=== PATIENT | female | born 1965 | race Hispanic/Latino ===

== ENCOUNTER 2024-12-13 10:42 | Emergency (ER) | payer BC, OTHER ==
[~2024-12-13] VITALS: Ht 162.6 cm; Wt 63.5 kg
--- NOTE | 2024-12-13 10:57 | ERN ---
ED Note History of Present Illness Stated Complaint: HEAD SHARP PAIN Time Seen by MD: 10:45 Dictation: PATIENT IS A 59-YEAR-OLD FEMALE WITH COMPLAINTS OF A RIGHT RETRO-ORBITAL AND TEMPORAL HEADACHE SHE HAS HAD FOR THREE DAYS. SHE STATES THE PAIN IS SHARP. SHE ALSO STAGE SHE FEELS LIKE THERE SOME WHELPS UNDERNEATH HER SCALP ON THE RIGHT SIDE. SHE STATES SHE HAS A HISTORY OF BREAST CA AND HAS BEEN IN REMISSION FOR SEVERAL YEARS. SHE STATES SHE CALLED HER DOCTOR IN [facility] AT THE [facility], ADVISED TO GO TO THE EMERGENCY ROOM. NIH IS 0. SHE HAS TAKEN NOTHING TODAY PRIOR TO ARRIVAL FOR PAIN ALSO, SHE DROVE HERSELF TO THE HOSPITAL. Allergies: Coded Allergies: fentanyl (Unverified Allergy, Unknown, 12/13/24) midazolam (Unverified Allergy, Unknown, 12/13/24) propofol (Unverified Allergy, Unknown, 12/13/24) Home Meds Active Scripts Butalb/Acetaminophen/Caffeine (Esgic 50-325-40 mg Tablet) 50 Mg-325 Mg-40 Mg Tablet, 2 TAB PO Q4H, #20 TAB 0 Refills TWO TABLETS BY MOUTH EVERY4 HOURS P.R.N. HEADACHE, MAXIMUM SIX TABLETS IN 24 HOURS Prov:ANATOLIY PATINO PHOTO MASK PATTERN GENERATOR 12/13/24 Famciclovir (Famciclovir) 500 Mg Tablet, 500 MG PO TID for 7 Days, #21 TAB Prov:ANATOLIY PATINO PHOTO MASK PATTERN GENERATOR 12/13/24 Past Medical History History: Not Applicable RN Note Reviewed/Agreed w/PFSH: Yes Review of System Dictation ROS CONSTITUTIONAL: NEGATIVE EXCEPT FOR HPI HEAD/FACE: NEGATIVE EXCEPT FOR HPI EENT: NEGATIVE EXCEPT FOR HPI RESPIRATORY: NEGATIVE EXCEPT FOR HPI GASTROINTESTINAL/ABDOMINAL: NEGATIVE EXCEPT FOR HPI GENITOURINARY: NEGATIVE EXCEPT FOR HPI MUSCULOSKELETAL: NEGATIVE EXCEPT FOR HPI INTEGUMENTARY: NEGATIVE EXCEPT FOR HPI NEUROLOGICAL/PSYCH: NEGATIVE EXCEPT FOR HPI RIGHT RETRO-ORBITAL AND TEMPORAL HEADACHE HEMATOLOGIC/LYMPHATIC: NEGATIVE EXCEPT FOR HPI ALL SYSTEMS NEGATIVE, EXCEPT NOTED ABOVE. 13 POINT REVIEW OF SYSTEMS ASSESSED AND ALL NEGATIVE EXCEPT FOR ABOVE. Initial Vital Sign VS Vital Signs Date Time Temp Pulse Resp B/P (MAP) Pulse Ox O2 Delivery O2 Flow Rate FiO2 12/13/24 11:00 97.9 83 16 127/90 99 Room Air 0 12/13/24 14:06 21 Physical Exam Dictation VITAL SIGNS REVIEWED GENERAL APPEARANCE: ALERT, ORIENTED X 3, MILD ACUTE DISTRESS, WELL DEVELOPED, NOURISHED. HEAD AND FACE: NON-TRAUMATIC. NO FACIAL RASH EYES: PERRL, PINK CONJUNCTIVAS, EYELID NO TRAUMA, ANTERIOR CHAMBER WITH ARCUS SENILIS. EARS: PINNAS INTACT AND NO SIGNS OF TRAUMA OR ERYTHEMA EAR CANALS CLEAR AND NO DISCHARGE TM NO ERYTHEMA NOSE: NO DISCHARGE, NO BLEEDING. OROPHARYNX: MOUTH NORMAL, TONGUE PINK, PHARYNX CLEAR,NO ERYTHEMA, TONSILS NO EXUDATES, NO ABSCESSES NOTED, MUCOUS MEMBRANE MOIST NECK: SUPPLE, NON-TENDER, NO THYROMEGALY, NO MASSES, NO JVD, NO BRUITS BREAST:DEFERRED CHEST:NO TENDERNESS, NO CREPITUS, NO PARADOXICAL MOVEMENT, NO RETRACTIONS LUNGS:CLEAR, WELL-VENTILATED, SYMMETRIC, NO RALES, NO WHEEZING, NO RHONCHI, NO STRIDOR, GOOD BREATH SOUNDS BILATERALLY HEART: REGULAR RATE, REGULAR RHYTHM, NO MURMUR, NO GALLOPS VASCULAR: NO PERIPHERAL EDEMA, ABDOMEN: SOFT, POSITIVE BOWEL SOUNDS, NONDISTENDED, NO GUARDING, NONTENDER, NO REBOUND, NO MASSES NO HEPATOMEGALY, NO SPLENOMEGALY, NO OTT'S SIGN, NO HERNIAS. RECTAL: DEFERRED GENITAL: DEFERRED NEUROLOGICAL: NORMAL SPEECH, MOTOR FUNCTION INTACT, SENSORY FUNCTION INTACT NIH IS 0 MUSCULOSKELETAL: NECK NONTENDER, FULL RANGE OF MOTION, BACK NONTENDER, FULL RANGE OF MOTION, EXTREMITIES: NONTENDER, FULL RANGE OF MOTION SKIN: COLOR PINK, DRY, NO TURGOR, NO RASH, NO LACERATIONS, NO ABRASIONS, NO CONTUSIONS. LYMPHATIC: DEFERRED Results (Laboratory/Radiology) Laboratory/Radiology Laboratory Tests Test 12/13/24 11:43 White Blood Count 5.9 K/uL (4.8-10.8) Red Blood Count 4.42 MIL/uL (4.00-5.50) Hemoglobin 13.8 g/dL (12.0-16.0) Hematocrit 41.5 % (36-48) Mean Corpuscular Volume 93.9 fL (79-99) Mean Corpuscular Hemoglobin 31.2 pg (27.0-33.0) Mean Corpuscular Hemoglobin Concent 33.3 g/dL (32.0-36.0) Red Cell Distribution Width 12.7 % (11.0-15.5) Platelet Count 303 K/uL (130-400) Mean Platelet Volume 10.1 fL (7.5-10.5) Immature Granulocyte % (Auto) 0.3 % (0-1) Neutrophils (%) (Auto) 55.3 % (40.0-77.0) Lymphocytes (%) (Auto) 29.6 % (21.0-51.0) Monocytes (%) (Auto) 11.3 % (3.0-13.0) Eosinophils (%) (Auto) 2.2 % (0.0-8.0) Basophils (%) (Auto) 1.3 % (0.0-5.0) Neutrophils # (Auto) 3.3 K/uL (1.8-7.7) Lymphocytes # (Auto) 1.8 K/uL (1.0-4.8) Monocytes # (Auto) 0.7 K/uL (0.1-1.0) Eosinophils # (Auto) 0.13 K/uL (0.00-0.70) Basophils # (Auto) 0.08 K/uL (0.00-0.20) Absolute Immature Granulocyte (auto 0.02 K/uL (0-1) Nucleated Red Blood Cells 0.0 % (0.0-0.19) Sodium Level 138 mmol/L (136-145) Potassium Level 4.2 mmol/L (3.5-5.1) Chloride Level 102 mmol/L (101-111) Carbon Dioxide Level 35 mmol/L (21-32) H Blood Urea Nitrogen 16 mg/dL (7-18) Creatinine 0.6 mg/dL (0.5-1.0) Glomerular Filtration Rate Calc 104 mL/min (>90) Random Glucose 90 mg/dL (70-105) Total Calcium 8.9 mg/dL (8.5-10.1) Exam: NONCONTRAST CT BRAIN REASON: RIGHT RETRO-ORBITAL AND TEMPORAL HEADACHE ONSET THREE DAYS PRIOR TO ARRIVAL. COMPARISON: None. TECHNIQUE: Images are obtained from vertex to the skull base. The exam was performed without IV contrast. FINDINGS: There is normal appearing brain parenchyma. There are no focal mass lesions. There is is no evidence of intracranial hemorrhage or acute stroke. Ventricles and sulci appear normal. Posterior fossa and brainstem structures are unremarkable. Paranasal sinuses and remaining extracranial soft tissues appear normal as well. IMPRESSION: 1. Normal noncontrast CT brain. Labs Reviewed?: Yes ED Course ED Course Orders Procedure Category Date Status Time Ct Head/Brain W/O CT 12/13/24 Resulted Contrast 10:54 Cbc With Differential LAB 12/13/24 Complete 10:54 Basic Metabolic Panel LAB 12/13/24 Complete 10:54 Acetaminophen 500mg PHA 12/13/24 Complete Tab (Tylenol 500mg T 11:00 Current Medications Medications (Trade) Dose Ordered Sig/Katerine Route PRN Reason Start Time Stop Time Status Last Admin Dose Admin Acetaminophen (TYLenol 500MG TAB) 1,000 mg ONCE ONCE PO 12/13/24 11:00 12/13/24 11:01 DC Vital Signs Date Time Temp Pulse Resp B/P (MAP) Pulse Ox O2 Delivery O2 Flow Rate FiO2 12/13/24 14:06 97.9 83 16 127/90 99 Room Air* 0 21 12/13/24 11:00 97.9 83 16 127/90 99 Room Air 0 1330/PATIENT WILL BE DISCHARGED HOME WITH NEVER NEGATIVE CT AND LABS. SHE WILL BE PROVIDED FAMCICLOVIR PROPHYLACTICALLY IN CASE THE EARLY RASH TO HER FACE COULD BE SHINGLES. SHE WAS TOLD TO FOLLOW UP WITH HER DOCTOR Medical Decision Making MDM MEDICAL DISCHARGE MAKING BASED ON CT OF THE HEAD AND BASIC LABS. CT WAS NEGATIVE AND RULED OUT CENTRAL NERVOUS SYSTEM LESION LABS COMPLETELY UNREMARKABLE PATIENT DISCHARGED HOME WITH TENSION HEADACHE ALSO WE WILL BE PROVIDED [facility]LOV[facility] FOR POSSIBLE EARLY SHINGLES AND TOLD TO SEE HER DOCTOR. SHE REMAINS NEUROLOGICALLY INTACT DX & DISP Disposition: Discharge Departure Impression: Primary Impression: Tension headache Additional Impression: Facial rash Condition: Stable Scripts Butalb/Acetaminophen/Caffeine (Esgic 50-325-40 mg Tablet) 50 Mg-325 Mg-40 Mg Tablet 2 TAB PO Q4H, #20 TAB 0 Refills TWO TABLETS BY MOUTH EVERY4 HOURS P.R.N. HEADACHE, MAXIMUM SIX TABLETS IN 24 HOURS Prov: ANATOLIY PATINO PHOTO MASK PATTERN GENERATOR 12/13/24 Famciclovir (Famciclovir) 500 Mg Tablet 500 MG PO TID for 7 Days, #21 TAB Prov: ANATOLIY PATINO PHOTO MASK PATTERN GENERATOR 12/13/24 Additional Instructions: FOLLOW-UP WITH PRIMARY CARE PROVIDER IN 1 TO 2 DAYS. TAKE MEDICATIONS DIRECTED HERE IN THE EMERGENCY ROOM. OKAY TO CONTINUE HOME MEDICATIONS UNLESS OTHERWISE DISCUSSED DURING YOUR VISIT IN THE EMERGENCY ROOM TODAY. RETURN TO YOUR NEAREST EMERGENCY ROOM IF SYMPTOMS WORSEN OR IF THERE IS NO IMPROVEMENT. CALL 911 IF YOU NEED IMMEDIATE ASSISTANCE. TAKE TYLENOL OR MOTRIN OVER-THE- COUNTER NEEDED AND IF NO CONTRAINDICATIONS ARE PRESENT. INCREASE ORAL HYDRATION. A WOUND CULTURE OR URINE CULTURE WAS ORDERED HERE IN THE EMERGENCY ROOM DEPARTMENT PLEASE FOLLOW-UP WITH PRIMARY CARE PROVIDER AND ADVISE THEM TO GET REPEAT PORTS FROM OUR FACILITY. IF YOU HAD ANY MICHELLE WRAP/SPLINTS THAT WERE APPLIED HERE, PLEASE DO NOT REMOVE THEM UNTIL YOU SEE YOUR PRIMARY CARE OR SPECIALTY. TAKE FAMCICLOVIR DIRECTED UNTIL GONE. TAKE MEDICATIONS FOR HEADACHE DIRECTED. FOLLOW UP WITH YOUR DOCTOR AT [facility] IN 1-2 DAYS Referrals: NONE (PCP) Time of Disposition: 13:30 I have reviewed the case, and I agree with, Diagnosis and Plan I performed the substantive portion of the visit. I have reviewed and personally made and approve the management plan that is documented in the notes by myself or the THUY. I acknowledge full responsibility for the patient's management plan. ANATOLIY PATINO NP Dec 13, 2024 10:57 GANESH QUINTANILLA MD Dec 14, 2024 11:04
[2024-12-13] MEDS: acetaMINOPHEN 500 MG TABLET PO ONE (11:00)
--- NOTE | 2024-12-13 11:28 | HMCIMG ---
Exam: NONCONTRAST CT BRAIN REASON: RIGHT RETRO-ORBITAL AND TEMPORAL HEADACHE ONSET THREE DAYS PRIOR TO ARRIVAL. COMPARISON: None. TECHNIQUE: Images are obtained from vertex to the skull base. The exam was performed without IV contrast. FINDINGS: There is normal appearing brain parenchyma. There are no focal mass lesions. There is is no evidence of intracranial hemorrhage or acute stroke. Ventricles and sulci appear normal. Posterior fossa and brainstem structures are unremarkable. Paranasal sinuses and remaining extracranial soft tissues appear normal as well. IMPRESSION: 1. Normal noncontrast CT brain. CT was performed with one or more following dose reduction techniques: automated exposure control, adjustment of the mA and kv according to patient's size, or use of a iterative reconstruction technique.
[2024-12-13 12:03] LABS: BASOPHILS # (AUTO) 0.08 K/uL (0.00-0.20); BASOPHILS % (AUTO) 1.3 % (0.0-5.0); EOSINOPHILS # (AUTO) 0.13 K/uL (0.00-0.70); EOSINOPHILS % (AUTO) 2.2 % (0.0-8.0); HEMATOCRIT 41.5 % (36-48); IMMATURE GRANULOCYTE ABSOLUTE 0.02 K/uL (0-1); LYMPHOCYTES # (AUTO) 1.8 K/uL (1.0-4.8); LYMPHOCYTES % (AUTO) 29.6 % (21.0-51.0); MEAN CORPUSCULAR HEMOGLOBIN 31.2 pg (27.0-33.0); MEAN CORPUSCULAR HGB CONC 33.3 g/dL (32.0-36.0); MEAN CORPUSCULAR VOLUME 93.9 fL (79-99); MONOCYTES # (AUTO) 0.7 K/uL (0.1-1.0); MONOCYTES % (AUTO) 11.3 % (3.0-13.0); NEUTROPHILS # (AUTO) 3.3 K/uL (1.8-7.7); NEUTROPHILS % (AUTO) 55.3 % (40.0-77.0); PLATELET COUNT (AUTO) 303 K/uL (130-400); RED BLOOD CELL COUNT(AUTO) 4.42 MIL/uL (4.00-5.50); RED CELL DISTRIBUTION WIDTH 12.7 % (11.0-15.5); WHITE BLOOD COUNT (AUTO) 5.9 K/uL (4.8-10.8)
[2024-12-13 12:28] LABS: CREATININE 0.6 mg/dL (0.5-1.0); POTASSIUM 4.2 mmol/L (3.5-5.1)
[2024-12-13] MEDS ORDERED: FAMC500T8 PO (13:32)
[2024-12-13] MEDS ORDERED: BUTA-271 PO (13:32)
[2024-12-13 14:06] VITALS: BP 127/90; PULSE 83; RESP 16; TEMP 97.9; O2SAT 99
== END 2024-12-13 14:47 | disposition home or self-care (01) ==
LOC: EDH 10:42
DX: G44.209 Tension-type headache, unspecified, not intractable (principal); R21 Rash and other nonspecific skin eruption; Z79.624 Long term (current) use of inhibitors of nucleotide synthesis; Z88.5 Allergy status to narcotic agent
CPT/HCPCS: 36415; 70450; 80048; 85025; 99284